=== PATIENT | male | born 1940 | race Caucasian/White ===

== ENCOUNTER 2018-07-24 08:47 | Emergency (ER) | payer MEDICARE ==
[2018-07-24 09:23] LABS: #Eosinphils 0.1 thou/uL (0.0-0.7); #Lymphocytes 1.7 thou/uL (1.20-3.40); #Monocytes 0.9 thou/uL (0.11-0.59); %Basophils 0.6 % (0.0-1.0); %Eosinophils 0.9 % (0.0-10.0); %Lymphocytes 19.9 % (21.0-51.0); %Monocytes 9.8 % (0.0-10.0); %Neutrophils 68.9 % (42.0-75.0); Hemoglobin 12.5 g/dL (14.0-18.0); Mean Corpuscular Hemoglobin 29.4 pg (27.0-31.0); Mean Corpuscular Volume 91.7 fL (78.0-98.0); Mean Platelet Volume 6.2 fL (7.4-10.4); Platelet Count 328 thou/uL (130-400); RBC Distribution Width 12.5 % (11.5-14.5); Red Blood Cell (RBC) Count 4.26 mill/uL (4.70-6.10); White Blood Cell (WBC) Count 8.7 thou/uL (4.8-10.8)
--- NOTE | 2018-07-24 09:42 | RAD ---
CHEST 2 VIEWS: Date: 07/24/18 HISTORY: Chest pain. COMPARISON: Chest radiograph from 2014. FINDINGS: There is a left hilar air space opacity/mass. There is a sliding hiatal hernia. Heart size is enlarge d. No pneumothorax. Compression deformity thoracolumbar junction. IMPRESSION: 1. Left perihilar opacity may reflect pneumonia or a mass. If patient is having pneumonia-like sympt oms, follow-up radiograph after treatment is recommended. If not, a CT chest would be recommended 2. Moderate size sliding hiatal hernia. 3. Compression deformity thoracolumbar junction may be T12 or L1. POS: [facility]
[2018-07-24 09:47] LABS: ALT (SGPT) 15 U/L (8-55); AST (SGOT) 15 U/L (5-34); Albumin 4.4 g/dL (3.4-4.8); Alkaline Phosphatase 68 U/L (40-150); Anion Gap 15 mmol/L (10-20); BUN (Urea Nitrogen) 10 mg/dL (8.4-25.7); Bilirubin, Total 0.4 mg/dL (0.2-1.2); CK (CPK) 80 U/L (30-200); Calc. Creatinine Clearance 0 mL/min (70-130); Calcium 9.3 mg/dL (7.8-10.44); Carbon Dioxide 23 mmol/L (23-31); Chloride 98 mmol/L (98-107); Estimated GFR-MDRD 80; Globulin 2.5 g/dL (2.4-3.5); Glucose 99 mg/dL (83-110); Lipase 9 U/L (8-78); Potassium 4.1 mmol/L (3.5-5.1); Protein, Total 6.9 g/dL (5.8-8.1); Sodium 132 mmol/L (136-145)
[2018-07-24 12:27] LABS: Troponin I Less than 0.010 ng/mL (< 0.028)
== END 2018-07-24 12:55 | disposition home or self-care (01) ==
LOC: ERS 08:47
DX: R07.9 Chest pain, unspecified (principal); E78.5 Hyperlipidemia, unspecified; I10 Essential (primary) hypertension; Z79.899 Other long term (current) drug therapy
CPT/HCPCS: 36415; 71046; 80053; 82550; 83690; 83880; 84484; 85025; 93005

== ENCOUNTER 2022-04-29 11:08 | Outpatient (CLI) | payer MEDICARE | END 2022-04-29 11:09 | disposition home or self-care (01) | LOC: MRI 11:08 | PROVIDERS: ATTEND Family Medicine | DX: R74.8 Abnormal levels of other serum enzymes (principal) | CPT/HCPCS: 74181 ==